=== PATIENT | female | born 1995 | race Caucasian/White ===

== ENCOUNTER 2017-05-31 22:28 | Emergency (ER) | payer BC, OTHER ==
[~2017-05-31] VITALS: Ht 175.3 cm; Wt 60.4 kg
[2017-05-31 22:34] VITALS: TEMP 37.1; Ht 175.3 cm; Wt 60.4 kg
--- NOTE | 2017-06-01 00:04 | EMERGENCY ROOM VISIT NOTE ---
History Report prepared by Radha: Javier Rob Under the Supervision of: Dr. Daniel Muñoz D.O. First contact with patient: 22:30 Stated Complaint: R ANKLE FX, FALL 13' History of Present Illness The patient is a 21 year old female who presents to the Emergency Room with complaints of worsening discomfort to her left elbow and right ankle beginning prior to arrival. The patient states she was climbing a boulder wall when she fell from 13'. She reports she fell on to a 6" thick mat, and she braced her fall the best she could. The patient notes she has fallen from this height before, but this time was unexpected. The patient states since she fell, her pain increased and so did the temperature of the injury. She denies hitting her head, loss of consciousness, back pain, neck pain, and abdominal pain. 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 A total of 10 systems reviewed and were otherwise negative. Past Medical & Surgical Medical Problems: (1) No Known Active Medical Problems Family History Patient reports no known family medical history. 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 GENERAL: Non-toxic in appearance. INTEGUMENTARY: Warm, dry, and [place]. HEAD: Normocephalic. EYES: without scleral icterus or trauma. ENT/OROPHARYNX: clear and moist. LYMPHADENOPATHY/NECK: Is supple without lymphadenopathy or meningismus. RESPIRATORY: Lungs clear and equal. CARDIOVASCULAR: Regular rate and rhythm. GI/ABDOMEN: Soft and nontender. No organomegaly or pulsatile mass. No rebound or guarding. Normal bowel sounds. EXTREMITIES: Warm. Mild discomfort to the left elbow with flexion and extension - no crepitus or obvious deformity. Right ankle shows moderate swelling to the lateral maleolsis. No tenderness of the squeezing of the lower leg above the ankle to the knee. BACK: No CVA tenderness. NEUROLOGICAL: Intact without focal deficits. PSYCHIATRIC: normal affect. MUSCULOSKELETAL: Normally developed with good muscle tone. Medical Decision & Procedures ER Provider Diagnostic Interpretation: X ray results and stated below per my interpretation and radiology interpretation. Left-elbow Min 3 Views Routine: no acute fracture or dislocation Right-ankle Min 3 Views Routine: Fracture of the talus with mild subluxation. Right-foot Min 3 Views Routine: Fracture of the talus. ED Course 2231: Previous medical records were reviewed. The patient was evaluated in room A02. A complete history and physical examination was performed. 2324: I reevaluated and examined the patient. She is not tender over the suspected fracture location. 2342: On reevaluation, the patient is resting comfortably. I discussed the results and findings with the patient. She verbalized agreement of the treatment plan. The patient will be discharged home after she is splinted. Medical Decision Differential diagnosis: Etiologies such as fracture, dislocation, neurovascular compromise, compartment syndrome, soft tissue injury, as well as others were entertained. This is a 21-year-old female who presents to the ED with a chief complaint of right ankle/foot pain as well as some left elbow pain. The patient was climbing a rock wall at the building. She reportedly fell about 13 feet onto a thick mat. When she landed she injured her right ankle/foot and hit her elbow. She denies loss of consciousness. She denies striking her head. Denies any neck or back pain, chest pains or other injuries. Exam of the left elbow reveals some mild discomfort with extension and flexion. X-rays of the left elbow did not show obvious fracture or dislocation. Exam of the right foot and ankle reveal moderate swelling to the lateral malleolus. There is good distal pulses and capillary refill. Motor and sensory function is intact distal. X-rays of the right foot and ankle reveal a talus fracture. The patient was splinted in a posterior Ortho-Glass splint. She was placed on crutches and nonweightbearing status. She was told to follow-up with orthopedics. She will call tomorrow for an appointment. Impression Primary Impression: Fracture, talus closed Scribe Attestation The scribe's documentation has been prepared under my direction and personally reviewed by me in its entirety. I confirm that the note above accurately reflects all work, treatment, procedures, and medical decision making performed by me. Departure Information Dispostion Home / Self-Care Prescriptions No Active Prescriptions or Reported Meds Referrals Esteban Marques D.O. Forms HOME CARE DOCUMENTATION FORM, IMPORTANT VISIT INFORMATION Additional Instructions You have a Talus fracture. This is a bone in your foot. It is broken. Call Dr. Marques's office tomorrow for recheck in 1-3 days and for casting. Take Tylenol / Motrin for pain. Keep splint clean and dry. No weight bearing on injured foot.
[2017-06-01 00:23] VITALS: BP 122/71; PULSE 85; O2SAT 96
--- NOTE | 2017-06-01 06:36 | DIAGNOSTIC IMAGING REPORT ---
R FOOT MIN 3 VIEWS ROUTINE CLINICAL HISTORY: Right foot pain status post trauma COMPARISON: None. DISCUSSION: There is irregularity of the talar neck., suspicious for a fracture. There is no dislocation. IMPRESSION: Acute fracture of the talus. Electronically signed by: Jarrell Magana M.D. 06/01/2017 6:35 AM Dictated Date/Time: 06/01/2017 6:32 AM
--- NOTE | 2017-06-01 06:48 | DIAGNOSTIC IMAGING REPORT ---
L ELBOW MIN 3 VIEWS ROUTINE HISTORY: 21 years-old Female fall acute left elbow pain status post fall COMPARISON: None available TECHNIQUE: 3 views of the left elbow FINDINGS: No acute fracture, subluxation or significant degenerative changes. No large joint effusion or radiopaque foreign body. Minimal posterior soft tissue swelling about the elbow. IMPRESSION: Minimal soft tissue swelling without acute fracture or subluxation. The above report was generated using voice recognition software. It may contain grammatical, syntax or spelling errors. Electronically signed by: Lakhwinder De La Torre M.D. 06/01/2017 6:46 AM Dictated Date/Time: 06/01/2017 6:45 AM
--- NOTE | 2017-06-01 06:51 | DIAGNOSTIC IMAGING REPORT ---
R ANKLE MIN 3 VIEWS ROUTINE HISTORY: 21 years-old Female fall, pain acute right ankle pain status post fall COMPARISON: None available TECHNIQUE: 3 views of the right ankle FINDINGS: 3 mm bone fragment is seen adjacent to the distal most portion of the distal fibula. Additionally, there is a 6 mm irregular bone fragment adjacent to the medial process of the talus. Moderate soft tissue swelling is seen circumferentially about the ankle. On the lateral view there is irregular lucency with cortical irregularity involving the talar neck. Small bone fragments are seen within the region of the posterior subtalar joint. Moderate joint effusion. IMPRESSION: 1. Acute nondisplaced fracture of the talar neck with small bone fragments within the region of the posterior subtalar joint. 2. Acute avulsion fractures of the medial talus and likely also involving the lateral malleolus. 3. Moderate soft tissue swelling with moderate joint effusion. The above report was generated using voice recognition software. It may contain grammatical, syntax or spelling errors. Electronically signed by: Lakhwinder De La Torre M.D. 06/01/2017 6:50 AM Dictated Date/Time: 06/01/2017 6:47 AM
== END 2017-06-01 00:15 | disposition home or self-care (01) ==
LOC: EDBD 22:28 → C.EDA 22:31
DX: S92.101A Unspecified fracture of right talus, initial encounter for closed fracture (principal); W17.89XA Other fall from one level to another, initial encounter; W22.8XXA Striking against or struck by other objects, initial encounter; Y93.31 Activity, mountain climbing, rock climbing and wall climbing; Y99.8 Other external cause status

== ENCOUNTER → 2017-06-03 | Outpatient (CLI) | payer BC ==
--- NOTE | 2017-06-03 12:58 | DIAGNOSTIC IMAGING REPORT ---
R LOWER EXTREMITY WITHOUT CT DOSE: 191.36 mGy.cm HISTORY: Trauma RIGHT ANKLE PAIN TECHNIQUE: Multiaxial CT images of the right ankle were performed and reformatted in the sagittal and coronal plane without the use of contrast. A dose lowering technique was utilized adhering to the principles of ALARA. COMPARISON: None. FINDINGS: Comminuted fracture mid talus. It extends superiorly to the anterior margin of the articular surface of the talar dome. No significant disruption of the lateral articular services of the talar dome is present with evidence for 2.5 mm inferior displacement of the distal talus inhalation of the proximal at the level of the medial malleolus. The comminuted component of the fracture is primarily vertical with evidence for maximum distraction of 2.9 mm. There are several small ossific fragments adjacent to the medial malleolus possibly representing ossific fragments within a joint effusion. Several small fragments are identified within the medial subtalar joint measuring 2 3 mm. Interosseous ligament appears to be grossly intact by CT criteria. At the lateral aspect of the talar fracture are several small ossific fragments adjacent to the tip of the distal fibula. These again most likely represent small septic fragments within the joint effusion. There is no evidence of dislocation. Calcaneus is intact. All remaining tarsal bone structures are unremarkable. There is generalized soft tissue edema. Joint effusion is again present. IMPRESSION: 1. Comminuted primarily vertical fracture mid talus slightly anterior to the talar dome in terms of location 2. Maximum bony distraction is 3 mm with several small loose bone fragments within the subtalar region as well as adjacent to the medial and lateral malleolus presumably within a joint effusion. 3. No evidence of dislocation. 4. All remaining osseous structures appear intact with the fracture line extending to the subtalar joint and region of the interosseous ligament. The above report was generated using voice recognition software. It may contain grammatical, syntax or spelling errors. Electronically signed by: Dajuan Moulton M.D. 06/03/2017 12:57 PM Dictated Date/Time: 06/03/2017 12:45 PM
== END | disposition home or self-care (01) ==
LOC: C.CTS 12:17
DX: S92.101A Unspecified fracture of right talus, initial encounter for closed fracture (principal); X58.XXXA Exposure to other specified factors, initial encounter